=== PATIENT | female | born 1990 | race Caucasian/White ===

== ENCOUNTER 2019-07-24 08:59 | Emergency (ER) | payer OTHER ==
[~2019-07-24] VITALS: Ht 172.7 cm; Wt 111.6 kg
[2019-07-24] MEDS ORDERED: PREDNISONE 20 M20 M1 PO (09:34)
[2019-07-24 09:52] VITALS: BP 133/87
== END 2019-07-24 09:52 | disposition home or self-care (01) ==
LOC: M.ERS 08:59
DX: L25.9 Unspecified contact dermatitis, unspecified cause (principal); Z88.1 Allergy status to other antibiotic agents